=== PATIENT | male | born 2000 | race African-American/Black ===

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

== ENCOUNTER 2020-03-22 11:41 | Emergency (ER) | payer OTHER, MEDICAID, SELFPAY ==
[2020-03-22 11:43] VITALS: BP 140/92; PULSE 90; RESP 18; TEMP 36.3; O2SAT 100
--- NOTE | 2020-03-22 11:47 | PC.NURSE ---
Patient to bathroom to provide urine.
[2020-03-22 12:12] LABS: Add Urine Microscopic? YES; Appearance Urine Clear (Clear); Bacteria Urine Trace /hpf; Bilirubin Urine Negative (Negative); Blood Urine Negative (Negative); Color Urine Yellow (Yellow); Glucose Urine UA Negative (Negative); Ketones Urine Negative (Negative); Leukocyte Esterase Ur 2+ LEU/UL (Negative); Mucus Urine Heavy /lpf; Nitrate Urine Negative (Negative); Protein Urine Negative (Negative); Specific Grav Ur 1.024 (1.001-1.035); Squamous Epithelial Cell Urine Rare /hpf (Few); Urobilinogen Urine Negative mg/dL (<2.0); WBC Urine >75 /hpf
[2020-03-22 12:45] VITALS: BP 131/81; PULSE 89; RESP 20; O2SAT 98
[2020-03-22] MEDS: AZITHROMYCIN 250 MG TABLET 1000 MG PO (12:58)
[2020-03-22] MEDS: metroNIDAZOLE 250 MG TABLET 2000 MG PO (12:59)
[2020-03-22] MEDS: LIDOCAINE HCL 1% LOCAL INJ 20 ML VIAL (13:00)
[2020-03-22] MEDS: cefTRIAXone 250 MG VIAL IM (13:00)
--- NOTE | 2020-03-22 13:00 | ED.ABDPAIN ---
HPI - Abdominal Pain General Chief Complaint: Urogenital-Male Stated Complaint: think I have a UTI Time Seen by Provider: 03/22/20 12:06 Source: patient Mode of arrival: ambulatory Limitations: no limitations History of Present Illness HPI narrative: Patient is a 19-year-old who presents with urinary burning for the last several days denies similar occurrence denies other complaints presents in no distress has not been seen for this is unsure as to STD the risks Related Data Allergies Allergy/AdvReac Type Severity Reaction Status Date / Time No Known Allergies Allergy Verified 03/22/20 11:49 Review of Systems Review of Systems: All systems reviewed & are unremarkable except as noted in HPI and below PMFSH Past Medical History Medical History Healthy adult Surgical History Surgical History No history of previous surgery Social History Social History Smoking status: Never smoker Alcohol intake: never Substance use type: marijuana Gender identity (if verbalized by the patient): Male Exam Narrative: Exam Narrative: GENERAL: Well-appearing, well-nourished, and in no acute distress. HEAD: Normocephalic, atraumatic. EYES: PERRLA and EOMI. ENT: Nares clear, no rhinorrhea or epistaxis. Mucous membranes moist. CHEST: Clear to auscultation. No respiratory distress. No wheezes rales or rhonchi HEART: Regular rate and rhythm. No murmur heard. Normal peripheral pulses. ABDOMEN: Soft, nontender, nondistended EXTREMITIES: Normal range of motion. No edema. SKIN: Warm, dry, no rash. NEURO: No focal deficits. Alert and oriented x3. PSYCH: Normal mood and affect. Course Course Emergency Course: Patient will be tested for STDs found to have urinary tract infection will be treated outpatient with primary care follow-up and is also been given treatment in the emergency department Vital Signs Vital signs: Vital Signs Temperature 97.4 F L 03/22/20 11:43 Pulse Rate 90 03/22/20 11:43 Respiratory Rate 18 03/22/20 11:43 Blood Pressure 140/92 H 03/22/20 11:43 Pulse Oximetry 100 03/22/20 11:43 Temperature 97.4 F L 03/22/20 11:43 Pulse Rate 89 03/22/20 12:45 Respiratory Rate 20 03/22/20 12:45 Blood Pressure 131/81 03/22/20 12:45 Pulse Oximetry 98 03/22/20 12:45 MDM - Abdominal Pain MDM Narrative Medical decision making narrative: Patient with urethritis will be discharged provided with reasons to return given primary care follow-up afebrile nontoxic-appearing no distress was tested and treated in the emergency department Lab Data Labs: Lab Results 03/22/20 Range/Units 11:53 Urine Color Yellow (Yellow) Urine Appearance Clear (Clear) Urine pH 6.0 (5.0-9.0) Ur Specific [place] 1.024 (1.001-1.035) Urine Protein Negative (Negative) mg/dL Urine Glucose (UA) Negative (Negative) mg/dL Urine Ketones Negative (Negative) mg/dL Ur Blood (Man) Negative (Negative) Urine Nitrate Negative (Negative) Urine Bilirubin Negative (Negative) Urine Urobilinogen Negative (<2.0) mg/dL Leukocyte Esterase Rfl 2+ H (Negative) STUART/UL Urine RBC 3-5 H (0-2) /hpf Urine WBC >75 H /hpf Ur Squamous Epith Cells Rare (Few) /hpf Urine Bacteria Trace /hpf Urine Mucus Heavy H /lpf Urine Characteristics Clear Discharge Plan Discharge Clinical Impression: Urethritis Patient Disposition: Home, Self-Care Condition: Stable Instructions: Antibiotic Form, Safe Sex Practices (ED), Urinary Tract Infection in Men (ED) Additional Instructions: Follow up with primary care in the next 2-3 days for re-evaluation and culture results. Antibiotics as prescribed. Increase fluid intake. Tylenol and Motrin for pain and or fever if
[2020-03-22 13:11] VITALS: BP 138/82; PULSE 80; RESP 20; O2SAT 100
== END 2020-03-22 13:12 | disposition home or self-care (01) ==
PROVIDERS: Emergency Medicine Emergency Medical Services; Emergency Provider Emergency Medicine
DX: N34.2 Other urethritis (principal)
CPT/HCPCS: 81001; 87086; 87491; 87591; 96372; 99283; A9270; J0696

== ENCOUNTER 2020-07-20 15:09 | Emergency (ER) | payer OTHER, MEDICAID, SELFPAY ==
[2020-07-20 15:12] VITALS: BP 133/87; PULSE 88; RESP 18; TEMP 36.5; O2SAT 100
--- NOTE | 2020-07-20 15:45 | ED.SKABFB ---
HPI - Skin/Abscess/Foreign Bdy General Chief complaint: Skin/Abscess/Foreign Body Stated complaint: red bumps all over my body Time Seen by Provider: 07/20/20 15:22 Source: patient Mode of arrival: ambulatory Limitations: no limitations History of Present Illness HPI narrative: This is a 19-year-old male that presents the emergency department for itchy rash x3 days. Reports he first noted the rash on his arms. It has spread to his back and legs. He has been taking Benadryl for itching. He also applied a [id number] steroid cream. Does report that he had been using a new soap. Denies fever. Related Data Allergies Allergy/AdvReac Type Severity Reaction Status Date / Time No Known Allergies Allergy Verified 07/20/20 15:16 Review of Systems Review of Systems: Narrative: CONSTITUTIONAL: Denies fever SKIN: Reports rash and itching. All systems reviewed & are unremarkable except as noted in HPI and below PMFSH Past Medical History Medical History Healthy adult Surgical History Surgical History No history of previous surgery Social History Social History Smoking status: Never smoker Alcohol intake: never Substance use type: marijuana Gender identity (if verbalized by the patient): Male Exam Narrative: Exam Narrative: GENERAL: Well-appearing, well-nourished, and in no acute distress. HEAD: Normocephalic, atraumatic. EYES: EOMI. EXTREMITIES: Normal range of motion. No edema. SKIN: Warm, dry. Red, papular rash present on the face, arms, back and leg NEURO: No focal deficits. Alert and oriented x3. PSYCH: Normal mood and affect Course Vital Signs Vital signs: Vital Signs Temperature 97.7 F 07/20/20 15:12 Pulse Rate 88 07/20/20 15:12 Respiratory Rate 18 07/20/20 15:12 Blood Pressure 133/87 07/20/20 15:12 Pulse Oximetry 100 07/20/20 15:12 Temperature 97.7 F 07/20/20 15:12 Pulse Rate 88 07/20/20 15:12 Respiratory Rate 18 07/20/20 15:12 Blood Pressure 133/87 07/20/20 15:12 Pulse Oximetry 100 07/20/20 15:12 MDM - Skin/Abscess/Foreign Bdy MDM Narrative Medical decision making narrative: Patient presents the emergency department for itchy rash. Consistent with possible contact dermatitis. Will be started on a steroid taper and was instructed on antihistamines. He is to follow-up with primary care doctor. He was given warnings to return to the ER Critical Care Time Critical Care Time Critical Care Time: No Discharge Plan Discharge Clinical Impression: Rash and nonspecific skin eruption Patient Disposition: Home, Self-Care Condition: Stable Instructions: Acute Rash (ED) Additional Instructions: Return to the emergency department if you experience fever, redness and swelling of your wounds, abnormal drainage from your wounds, or any other symptoms that are concerning to you Take a Pepcid and Claritin daily. Take steroid taper as prescribed. Benadryl as needed for severe itching Follow-up with primary care doctor Prescriptions: New methylprednisolone [Medrol (Mario)] 4 mg tablets,dose pack See Rx Instructions .ROUTE .COMPLEX Qty: 21 RF: 0 Follow-up/Referrals: Jhonny Link MD [Primary Care Provider] - 3 Days
== END 2020-07-20 16:04 | disposition home or self-care (01) ==
PROVIDERS: Emergency Provider Emergency Medicine; PCP Emergency Medicine
DX: R21 Rash and other nonspecific skin eruption (principal)
CPT/HCPCS: 99283

== ENCOUNTER 2021-02-10 18:41 | Emergency (ER) | payer OTHER, MEDICAID, SELFPAY ==
[2021-02-10 19:13] VITALS: BP 129/69; PULSE 89; RESP 20; TEMP 36.2; O2SAT 99
[2021-02-10 20:52] VITALS: BP 144/83; PULSE 71; RESP 18; O2SAT 100
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
--- NOTE | 2021-02-10 20:59 | PC.NURSE ---
placed in cervical collar until scans of neck are clear.
[2021-02-10 21:50] VITALS: BP 134/81; PULSE 65; RESP 16; TEMP 37.1; O2SAT 100
== END 2021-02-10 21:51 | disposition home or self-care (01) ==
PROVIDERS: Emergency Provider Emergency Medicine
DX: S06.0X0A Concussion without loss of consciousness, initial encounter (principal); V43.52XA Car driver injured in collision with other type car in traffic accident, initial encounter; Y92.410 Unspecified street and highway as the place of occurrence of the external cause
CPT/HCPCS: 99283; L0140

== ENCOUNTER 2021-07-18 08:14 | Emergency (ER) | payer OTHER, SELFPAY ==
[2021-07-18 08:17] VITALS: BP 149/86; PULSE 90; RESP 16; TEMP 36.6; O2SAT 100
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
[2021-07-18 08:53] LABS: Add Urine Microscopic? NO; Appearance Urine Clear (Clear); Bilirubin Urine Negative (Negative); Blood Urine Negative (Negative); Color Urine Yellow (Yellow); Glucose Urine UA Negative (Negative); Ketones Urine Negative (Negative); Leukocyte Esterase Ur Negative LEU/UL (Negative); Nitrate Urine Negative (Negative); Protein Urine Negative (Negative); Specific Grav Ur 1.017 (1.001-1.035); Urobilinogen Urine Negative mg/dL (<2.0)
--- NOTE | 2021-07-18 09:15 | ED.MALEGU ---
HPI - Male Genitourinary General Chief complaint: Urogenital-Male Stated complaint: UTI Time Seen by Provider: 07/18/21 09:02 Source: patient History of Present Illness HPI Narrative: 20 year old male presents today with complaints of 1 week of intermettent burning to the tip of his penis that is not related to urinating. Patient deneis penile discharge. Admits to unprotected se about 1 week ago and new detergent. No rashes, sore, bodyaches, chills, or fevers. Related Data Sexually active: Yes Allergies Allergy/AdvReac Type Severity Reaction Status Date / Time No Known Allergies Allergy Verified 02/10/21 20:46 Review of Systems Constitutional: Constitutional: Reports as per HPI and Reports no additional constitutional complaints Eyes: Eyes: Reports as per HPI ENT: Reports system reviewed and no additional complaints, except as documented Cardiovascular: Cardiovascular: Reports no additional cardiovascular complaints Respiratory: Respiratory: Reports no additional respiratory complaints Genitourinary: Genitourinary: Reports as per HPI and Reports genital pain (intermittent pain to penis) Integumentary/Breasts: Skin/Breast: Reports system reviewed and no additional complaints, except as docu, Denies rash and Denies skin ulcer PMFSH Past Medical History Medical History Healthy adult Surgical History Surgical History No history of previous surgery Social History Social History Smoking status: Never smoker Alcohol intake: never Substance use type: marijuana Gender identity (if verbalized by the patient): Male Exam Narrative: GENERAL: Well-appearing, well-nourished, and in no acute distress. HEAD: Normocephalic, atraumatic. EYES: PERRLA and EOMI. NECK: Supple. No adenopathy or masses. No carotid bruits or JVD CHEST: Clear to auscultation. No respiratory distress. No wheezes rales or rhonchi HEART: Regular rate and rhythm. No murmur heard. Normal peripheral pulses. ABDOMEN: Soft, nontender, nondistended, normal active bowel sounds. : No discharge, no lesions, no rash EXTREMITIES: Normal range of motion. No edema. SKIN: Warm, dry, no rash. NEURO: No focal deficits. Alert and oriented x3. PSYCH: Normal mood and affect. Course Vital Signs Vital signs: Vital Signs Temperature 36.6 C 07/18/21 08:17 Pulse Rate 90 07/18/21 08:17 Respiratory Rate 16 07/18/21 08:17 Blood Pressure 149/86 H 07/18/21 08:17 Pulse Oximetry 100 07/18/21 08:17 Temperature 36.6 C 07/18/21 08:17 Pulse Rate 70 07/18/21 09:41 Respiratory Rate 14 07/18/21 09:41 Blood Pressure 118/68 07/18/21 09:41 Pulse Oximetry 100 07/18/21 09:41 MDM - Male Genitourinary Differential Diagnosis Differential diagnosis: Likely urinary tract infection and other (STI) Lab Data Lab results narrative: Laboratory Results - last 24 hr 07/18/21 08:42 Urine Color Yellow Urine Appearance Clear Urine pH 6.0 Ur Specific [place] 1.017 Urine Protein Negative Urine Glucose (UA) Negative Urine Ketones Negative Ur Blood (Man) Negative Urine Nitrate Negative Urine Bilirubin Negative Urine Urobilinogen Negative Leukocyte Esterase Rfl Negative Labs: Lab Results 07/18/21 07/18/21 Range/Units 08:42 08:42 Urine Color Yellow (Yellow) Urine Appearance Clear (Clear) Urine pH 6.0 (5.0-9.0) Ur Specific [place] 1.017 (1.001-1.035) Urine Protein Negative (Negative) mg/dL Urine Glucose (UA) Negative (Negative) mg/dL Urine Ketones Negative (Negative) mg/dL Ur Blood (Man) Negative (Negative) Urine Nitrate Negative (Negative) Urine Bilirubin Negative (Negative) Urine Urobilinogen Negative (<2.0) mg/dL Leukocyte Esterase Rfl Negative (Negative) STUART/UL C.trachomatis RNA (T
[2021-07-18] MEDS: DOXYCYCLINE HYCLATE 100 MG TABLET PO (09:34)
[2021-07-18] MEDS: cefTRIAXone 1 GM VIAL 0.5 GM IM (09:35)
[2021-07-18 09:41] VITALS: BP 118/68; PULSE 70; RESP 14; O2SAT 100
== END 2021-07-18 09:42 | disposition home or self-care (01) ==
PROVIDERS: Emergency Medicine; Emergency Provider Nurse Practitioner Family
DX: N48.89 Other specified disorders of penis (principal); Z72.51 High risk heterosexual behavior; Z11.3 Encounter for screening for infections with a predominantly sexual mode of transmission
CPT/HCPCS: 81003; 87491; 87591; 96372; 99283; A9270; J0696

== ENCOUNTER 2021-08-24 10:00 | Emergency (ER) | payer OTHER, SELFPAY ==
[2021-08-24 10:04] VITALS: BP 140/78; PULSE 98; RESP 14; TEMP 36.9; O2SAT 100
--- NOTE | 2021-08-24 11:34 | ED.GENADULT ---
HPI - General Adult General Chief complaint: Urogenital-Male <Shabnam Buckley PA-C - Last Filed: 08/24/21 16:39> Stated complaint: UTI <GIANNI Bhat Last Filed: 08/24/21 16:39> Time Seen by Provider: 08/24/21 10:53 <Shabnam Buckley PA-C - Last Filed: 08/24/21 16:39> Source: patient <GIANNI Bhat Last Filed: 08/24/21 16:39> Mode of arrival: ambulatory <GIANNI Bhat Last Filed: 08/24/21 16:39> Limitations: no limitations <GIANNI Bhat Last Filed: 08/24/21 16:39> History of Present Illness HPI narrative: Patient is a 20-year-old male who presents the ED with report of dysuria. Patient reports he has been having the sensation for approximately 1 month. He was seen in the ED on 07/18 at which point there was concern for STIs. Patient was empirically treated, but did not take the doxycycline as prescribed. He eventually did take the full course but missed several days in between. He states the symptoms improved slightly but have worsened again over the past 1 week. He states the dysuria is only at the end of micturition, not throughout or at the beginning. Denies any hematuria, urinary frequency, back pain, abdominal pain, nausea, vomiting, penile discharge, sores or lesions, or further concern for STI. <Shabnam Buckley PA-C - Last Filed: 08/24/21 16:39> Related Data Home medications: Home Medications Medication Instructions Recorded Confirmed No Home Medications 08/24/21 08/24/21 <GIANNI Bhat Last Filed: 08/24/21 16:39> Allergies/adverse reactions: Allergies Allergy/AdvReac Type Severity Reaction Status Date / Time No Known Allergies Allergy Verified 08/24/21 11:54 <GIANNI Bhat Last Filed: 08/24/21 16:39> Review of Systems Review of Systems: CONSTITUTIONAL: Denies fever, chills, or sweats. CARDIOVASCULAR: Denies chest pain. RESPIRATORY: Denies dyspnea. GASTROINTESTINAL: Denies abdominal pain, nausea, vomiting, or diarrhea. GENITOURINARY: Reports dysuria. Denies penile discharge, genital lesions/sores, urinary frequency, hematuria. MUSCULOSKELETAL: Denies back pain. <Shabnam Buckley PA-C - Last Filed: 08/24/21 16:39> All systems reviewed & are unremarkable except as noted in HPI and below <Shabnam Buckley PA-C - Last Filed: 08/24/21 16:39> PMFSH Past Medical History Medical History: Medical History Healthy adult <Shabnam Buckley PA-C - Last Filed: 08/24/21 16:39> Surgical History Surgical History: Surgical History No history of previous surgery <Shabnam Buckley PA-C - Last Filed: 08/24/21 16:39> Social History Social History: Social History Smoking status: Never smoker Alcohol intake: never Substance use type: marijuana Gender identity (if verbalized by the patient): Male <Shabnam Buckley PA-C - Last Filed: 08/24/21 16:39> Exam Narrative: GENERAL: Well appearing, well-nourished, non-toxic, in no acute distress. HEAD: Normocephalic, atraumatic. NECK: Supple. No adenopathy, no masses. RESPIRATORY: Airway patent, respirations nonlabored. Clear to auscultation bilaterally, no rales, rhonchi, wheezing. CARDIOVASCULAR: Regular rate and rhythm without murmurs, rubs, or gallops. ABDOMINAL: Soft, nontender, nondistended, no hepatosplenomegaly. Normoactive BS. MUSCULOSKELETAL: Moves all extremities. Strength/ROM intact without gross deformities. SKIN: Warm, dry, normal color. No rashes. NEURO: A&O X3. Speech clear. Cranial nerves II-XII grossly intact. Steady gait. No ataxic movements. PSYCHIATRIC: Appropriate mood and affect. Normal interaction. <Shabnam Buckley PA-C - Last Filed: 08/24/21 16:39> Course CLERK OF SUPERIOR COURT/PA Physician Supervision For this patient encounter, I reviewed the CLERK OF SUPERIOR COURT or PA documentation,
[2021-08-24 11:36] LABS: Add Urine Microscopic? YES; Appearance Urine Clear (Clear); Bilirubin Urine Negative (Negative); Blood Urine Negative (Negative); Color Urine Yellow (Yellow); Glucose Urine UA Negative (Negative); Ketones Urine Negative (Negative); Leukocyte Esterase Ur Negative LEU/UL (Negative); Nitrate Urine Negative (Negative); Protein Urine Negative (Negative); RBC Urine 0-2 /hpf (0-2); Specific Grav Ur 1.018 (1.001-1.035); WBC Urine 0-3 /hpf
[2021-08-24 11:59] LABS: Basophils Percent Auto 0.3 % (0.2-1.2); Eosinophils Absolute Auto 0.1 K/mm3 (0-0.3); Eosinophils Percent Auto 1.8 % (0-4.4); Hemoglobin 17.4 g/dL (14.0-18.0); Lymphocytes Absolute Auto 1.53 K/mm3 (0.9-3.2); Lymphocytes Percent Auto 46.4 % (18.3-44.2); Mean Corpuscular HGB Conc 34.1 g/dl (32-36); Mean Corpuscular Hemoglobin 31.9 pg (26-34); Mean Corpuscular Volume 93.4 fl (80-100); Mean Platelet Volume 10.4 fl (7.4-10.4); Monocytes Absolute Auto 0.3 K/mm3 (0.1-0.6); Monocytes Percent Auto 7.9 % (2.6-8.5); Neutrophils Absolute Auto 1.4 K/mm3 (1.3-6.7); Neutrophils Percent Auto 43.6 % (45.5-73.1); Platelet Count Result 194 k/mm3 (150-375); Red Blood Count 5.46 M/mm3 (4.6-6.20); Red Cell Distribution Width 12.1 % (11.5-14.5); White Blood Count 3.3 K/mm3 (4.5-10.0)
[2021-08-24 12:09] LABS: Alanine Aminotransferase 57 U/L (4-50); Alkaline Phosphatase 81 U/L (38-126); Anion Gap 5 mmol/L (8-16); Aspartate Amino Transferase 35 U/L (17-59); Bilirubin,Total 1.2 mg/dL (0.2-1.3); Blood Urea Nitrogen 14 mg/dL (9-20); Calcium 9.6 mg/dL (8.4-10.2); Carbon Dioxide 32 mmol/L (22-30); Chloride 99 mmol/L (98-107); Estimated CRCL calculation 100 ml/min; Estimated Glomerular Filt Rate > 60; Glucose 92 mg/dL (65-110); Sodium 136 mmol/L (137-145)
--- NOTE | 2021-08-24 12:35 | PC.NURSE ---
Lab called for GC add on to urine.
== END 2021-08-24 12:56 | disposition home or self-care (01) ==
PROVIDERS: Physician Assistant; Emergency Provider Emergency Medicine
DX: R30.0 Dysuria (principal)
CPT/HCPCS: 36415; 80053; 81001; 85025; 99283

== ENCOUNTER 2022-11-29 17:32 | Emergency (ER) | payer BC, OTHER, SELFPAY ==
[2022-11-29 17:38] VITALS: BP 136/93; PULSE 94; RESP 17; TEMP 36.6; O2SAT 99
[2022-11-29 20:20] LABS: Basophils Percent Auto 0.4 % (0.2-1.2); Eosinophils Absolute Auto 0.1 K/mm3 (0-0.3); Eosinophils Percent Auto 1.6 % (0-4.4); Hematocrit 48.2 % (42.0-52.0); Hemoglobin 16.9 g/dL (14.0-18.0); Immature Granulocyte Absolute 0.01 K/mm3 (0.00-0.031); Immature Granulocyte Percent A 0.2 % (0-0.5); Lymphocytes Absolute Auto 1.92 K/mm3 (0.9-3.2); Lymphocytes Percent Auto 39.5 % (18.3-44.2); Mean Corpuscular HGB Conc 35.1 g/dl (32-36); Mean Corpuscular Hemoglobin 31.5 pg (26-34); Mean Corpuscular Volume 89.9 fl (80-100); Mean Platelet Volume 10.4 fl (7.4-10.4); Monocytes Absolute Auto 0.5 K/mm3 (0.1-0.6); Monocytes Percent Auto 9.5 % (2.6-8.5); Neutrophils Absolute Auto 2.4 K/mm3 (1.3-6.7); Neutrophils Percent Auto 48.8 % (45.5-73.1); Platelet Count Result 191 k/mm3 (150-375); Red Blood Count 5.36 M/mm3 (4.6-6.20); Red Cell Distribution Width 11.9 % (11.5-14.5); White Blood Count 4.9 K/mm3 (4.5-10.0)
[2022-11-29 20:36] LABS: Alanine Aminotransferase 38 U/L (6-50); Albumin Level 4.9 g/dL (3.5-5.1); Alkaline Phosphatase 72 U/L (38-126); Anion Gap 5 mmol/L (8-16); Aspartate Amino Transferase 29 U/L (17-59); Bilirubin,Total 1.3 mg/dL (0.2-1.3); Blood Urea Nitrogen 16 mg/dL (9-20); Calcium 10.3 mg/dL (8.4-10.2); Carbon Dioxide 33 mmol/L (22-30); Chloride 101 mmol/L (98-107); Estimated Glomerular Filt Rate > 60; Glucose 82 mg/dL (65-110); Lipase 44 U/L (23-300); Potassium 3.5 mmol/L (3.4-5.0); Sodium 139 mmol/L (137-145)
[2022-11-29 21:03] VITALS: BP 143/97; PULSE 71; RESP 16; O2SAT 100
[2022-11-29 21:30] LABS: Appearance Urine Clear (Clear); Bacteria Urine None Seen /hpf; Bilirubin Urine Negative (Negative); Blood Urine Negative (Negative); Color Urine Yellow (Yellow); Glucose Urine UA Negative (Negative); Ketones Urine Trace mg/dL (Negative); Leukocyte Esterase Ur Negative LEU/UL (Negative); Need Manual Microscopic Reviewed; Nitrate Urine Negative (Negative); Protein Urine Trace mg/dL (Negative); RBC Urine 0-2 /hpf (0-2); Specific Grav Ur 1.031 (1.001-1.035); Squamous Epithelial Cell Urine None seen /hpf (Few); WBC Urine 0-5 /hpf; pH Urine 6.5 (5.0-9.0)
[2022-11-29 21:32] LABS: Add Urine Microscopic? YES
[2022-11-29] MEDS: ACETAMINOPHEN 500 MG TABLET 1000 MG PO (21:44)
[2022-11-29] MEDS: DICYCLOMINE HCL 10 MG CAPSULE 20 MG PO (21:44)
[2022-11-29] MEDS: IBUPROFEN 400 MG TABLET 800 MG PO (21:45)
--- NOTE | 2022-11-29 21:46 | ED.GENADULT ---
HPI - General Adult General Chief complaint: Abdominal Pain Stated complaint: abd pain Time Seen by Provider: 11/29/22 21:00 History of Present Illness HPI narrative: A 22-year-old male presenting ED with a chief complaint of abdominal pain. Patient says that for the last 3 days he has been having sharp pains in his lower abdomen that are intermittent, 4 out 10 intensity and improved with burping. Symptoms are worse with movement. He has been treated himself with Gas-X and tums which has provided some relief. However he continued to have symptoms he came in to be evaluated. The patient denies fever chills nausea vomiting diarrhea urinary symptoms or risk factors for STDs. Related Data Allergies Allergy/AdvReac Type Severity Reaction Status Date / Time No Known Allergies Allergy Verified 11/29/22 21:04 [facility] Past Medical History Medical History Healthy adult Surgical History Surgical History No history of previous surgery Social History Social History Smoking status: Never smoker Alcohol intake: never Substance use type: marijuana Gender identity (if verbalized by the patient): Male Exam Narrative: APPEARANCE: No apparent distress. Polite and pleasant during the interview. Head: atraumatic. EYES: EOMI, NOSE: Atraumatic NECK: Trachea midline RESPIRATORY: No increased rate of breathing , clear to auscultation CARDIOVASCULAR: RRR, ABDOMINAL: soft, nontender, no guarding or rebound, no CVA tenderness MUSCULOSKELETAl: No obvious deformities NEURO: Alert. Moving 4/4 extremities SKIN:: Warm, dry. Normal color PSYCHIATRIC: Normal affect Course Vital Signs Vital signs: Vital Signs Temperature 97.8 F 11/29/22 17:38 Pulse Rate 94 11/29/22 17:38 Respiratory Rate 17 11/29/22 17:38 Blood Pressure 136/93 H 11/29/22 17:38 Pulse Oximetry 99 11/29/22 17:38 Oxygen Delivery Room Air 11/29/22 17:38 Temperature 97.8 F 11/29/22 17:38 Pulse Rate 71 11/29/22 21:03 Respiratory Rate 16 11/29/22 21:03 Blood Pressure 143/97 H 11/29/22 21:03 Pulse Oximetry 100 11/29/22 21:03 Oxygen Delivery Room Air 11/29/22 17:[address] [facility] Narrative Medical decision making narrative: -Presentation: 22-year-old male presenting with diffuse sharp abdominal pain. 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 Urinalysis normal. -Discussion of Management/Consultants: None -Dx tests considered but not ordered: CT abdomen pelvis-benign abdominal exam and normal vital signs. -Procedures: none -Interventions: Motrin, Tylenol, Bentyl -Shared decision making / Disposition: patient has normal vital signs with a normal physical exam. No concerning findings on workup. No indication for CT at this time. Patient will be given symptomatic treatment and given primary care follow-up -RX: Motrin, Tylenol, Bentyl Vital Signs Vital Signs: Vital Signs Temperature 97.8 F 11/29/22 17:38 Pulse Rate 94 11/29/22 17:38 Respiratory Rate 17 11/29/22 17:38 Blood Pressure 136/93 H 11/29/22 17:38 Pulse Oximetry 99 11/29/22 17:38 Oxygen Delivery Room Air 11/29/22 17:38 Temperature 97.8 F 11/29/22 17:38 Pulse Rate 71 11/29/22 21:03 Respiratory Rate 16 11/29/22 21:03 Blood Pressure 143/97 H 11/29/22 21:03 Pulse Oximetry 100 11/29/22 21:03 Oxygen Delivery Room Air 11/29/22 17:38 Lab Data 11/29/22 20
[2022-11-29 22:13] VITALS: BP 124/74; PULSE 68; RESP 18; O2SAT 100
== END 2022-11-29 22:21 | disposition home or self-care (01) ==
PROVIDERS: Emergency Provider Emergency Medicine
DX: R10.30 Lower abdominal pain, unspecified (principal)
CPT/HCPCS: 36415; 80053; 81001; 83690; 85025; 99283; A9270

== ENCOUNTER 2023-06-07 15:21 | Emergency (ER) | payer BC, OTHER, SELFPAY ==
[2023-06-07 15:36] VITALS: BP 134/69; PULSE 87; RESP 16; TEMP 36.9; O2SAT 99
[2023-06-07 16:12] VITALS: BP 139/86; PULSE 108; RESP 15; O2SAT 98
[2023-06-07 16:37] LABS: Appearance Urine Clear (Clear); Bilirubin Urine Negative (Negative); Blood Urine Negative (Negative); Color Urine Yellow (Yellow); Glucose Urine UA Negative (Negative); Ketones Urine Trace mg/dL (Negative); Leukocyte Esterase Ur Negative LEU/UL (Negative); Nitrate Urine Negative (Negative); Protein Urine Negative (Negative); pH Urine 6.5 (5.0-9.0)
[2023-06-07 16:46] LABS: Add Urine Microscopic? NO
--- NOTE | 2023-06-07 17:37 | ED.MALEGU ---
HPI - Male Genitourinary General Chief complaint: Urogenital-Male Stated complaint: burning with urination Time Seen by Provider: 06/07/23 16:50 Source: patient Mode of arrival: ambulatory Limitations: no limitations History of Present Illness HPI Narrative: Patient is a 22-year-old male who presents the ED with concern for exposure to STD. Patient reports he was notified by a recent sexual partner that she tested positive for chlamydia. Patient would like to be tested and treated prophylactically. He does note a strange sensation times with urination, but denies dysuria, hematuria, penile discharge, genital lesions or sores. Denies abdominal pain, nausea, vomiting, fevers. Related Data Allergies Allergy/AdvReac Type Severity Reaction Status Date / Time No Known Allergies Allergy Verified 06/07/23 16:11 Review of Systems Review of Systems: CONSTITUTIONAL: Denies fever, chills, or sweats. GASTROINTESTINAL: Denies abdominal pain, nausea, vomiting, or diarrhea. GENITOURINARY: See HPI All systems reviewed & are unremarkable except as noted in HPI and below PMFSH Past Medical History Medical History Healthy adult Surgical History Surgical History No history of previous surgery Social History Social History Smoking status: Never smoker Alcohol intake: never Substance use type: marijuana Gender identity (if verbalized by the patient): Male Exam Narrative: GENERAL: Well appearing, well-nourished, non-toxic, in no acute distress. HEAD: Normocephalic, atraumatic. RESPIRATORY: Airway patent, respirations nonlabored. CARDIOVASCULAR: Regular rate and rhythm. MUSCULOSKELETAL: Moves all extremities. No gross deformities. SKIN: Warm, dry, normal color. NEURO: A&O X3. Speech clear. PSYCHIATRIC: Appropriate mood and affect. Normal interaction. Course Vital Signs Vital signs: Vital Signs Temperature 98.4 F 06/07/23 15:36 Pulse Rate 87 06/07/23 15:36 Respiratory Rate 16 06/07/23 15:36 Blood Pressure 134/69 06/07/23 15:36 Pulse Oximetry 99 06/07/23 15:36 Oxygen Delivery Room Air 06/07/23 15:36 Temperature 98.4 F 06/07/23 15:36 Pulse Rate 108 H 06/07/23 16:12 Respiratory Rate 15 06/07/23 16:12 Blood Pressure 139/86 06/07/23 16:12 Pulse Oximetry 98 06/07/23 16:12 Oxygen Delivery Room Air 06/07/23 15:36 MDM - Male Genitourinary MDM Narrative Medical decision making narrative: Patient presented to ED with exposure to STD, wanting to be tested and treated prophylactically. Given ceftriaxone in the ED. Discharged on doxy. Given information for [facility] to look up results. Given return precautions. Discharged in stable condition. Medical Records Attestation: I reviewed the patient's medical records. Lab Data Attestation: I reviewed the patient's lab results. Labs: Lab Results 06/07/23 06/07/23 Range/Units 16:09 16:19 Urine Color Yellow (Yellow) Urine Appearance Clear (Clear) Urine pH 6.5 (5.0-9.0) Ur Specific Justice 1.030 (1.001-1.035) Urine Protein Negative (Negative) mg/dL Urine Glucose (UA) Negative (Negative) mg/dL Urine Ketones Trace H (Negative) mg/dL Ur Blood (Man) Negative (Negative) Urine Nitrate Negative (Negative) Urine Bilirubin Negative (Negative) Urine Urobilinogen 1.0 (<2.0) mg/dL Leukocyte Esterase Rfl Negative (Negative) STUART/UL C. trachomatis (PCR) Pending N. gonorrhoeae (PCR) Pending T. vaginalis (PCR) Not detected (NOT DETECTE) T. vaginalis Amp RNA Cancelled Discharge Plan Discharge Clinical Impression: Exposure to sexually transmitted disease (STD) Patient Disposition: Home, Self-Care Condition: Stable Instructions: Antibiotic Form, Chlamydia
[2023-06-07] MEDS: DOXYCYCLINE HYCLATE 100 MG TABLET PO (17:50)
[2023-06-07] MEDS: cefTRIAXone 1 GM VIAL 0.5 GM IM (17:50)
[2023-06-07 18:38] LABS: Trichomonas Vag PCR NOT DETECTED (NOT DETECTE)
[2023-06-07 19:59] LABS: Chlamydia trachomatis DETECTED (NOT DETECTE); Neisseria gonorrhoeae PCR NOT DETECTED (NOT DETECTE)
== END 2023-06-07 18:47 | disposition home or self-care (01) ==
PROVIDERS: Emergency Medicine; Emergency Provider Physician Assistant
DX: R30.0 Dysuria (principal); Z20.2 Contact with and (suspected) exposure to infections with a predominantly sexual mode of transmission
CPT/HCPCS: 81003; 87491; 87591; 87661; 96372; 99283; A9270; J0696

== ENCOUNTER 2023-06-29 09:22 | Emergency (ER) | payer BC, OTHER, MEDICAID, SELFPAY ==
[2023-06-29 10:00] VITALS: BP 142/77; PULSE 71; RESP 16; TEMP 37.1; O2SAT 99
--- NOTE | 2023-06-29 10:16 | ED.GENADULT ---
HPI - General Adult General Chief complaint: Urogenital-Male Stated complaint: std exposure Source: patient, RN notes reviewed and old records reviewed Mode of arrival: ambulatory Limitations: no limitations History of Present Illness HPI narrative: 22-year-old male patient presents to [facility] requesting STD testing. Patient states had exposure to chlamydia 2-3 weeks ago. Patient states was seen and treated for chlamydia. Patient states just wanting to make sure it is is resolved. Patient denies symptoms Related Data Home Medications Medication Instructions Recorded Confirmed No Home Medications 06/29/23 06/29/23 Allergies Allergy/AdvReac Type Severity Reaction Status Date / Time No Known Allergies Allergy Verified 06/29/23 09:56 Review of Systems Constitutional: Constitutional: Reports no additional constitutional complaints, Denies body ache(s), Denies chills, Denies fatigue, Denies fever(s) and Denies headache(s) Eyes: Eyes: Reports no additional eye complaints and Denies blurry vision ENT: Reports system reviewed and no additional complaints, except as documented, Denies vertigo, Denies dizziness, Denies ear discharge, Denies otalgia, Denies facial pain, Denies headache(s), Denies nasal congestion, Denies nasal discharge, Denies sinus pain, Denies sinus pressure and Denies sore throat Cardiovascular: Cardiovascular: Reports no additional cardiovascular complaints, Denies chest pain, Denies chest pain at rest, Denies rapid heart rate and Denies dyspnea Respiratory: Respiratory: Reports no additional respiratory complaints, Denies chest congestion, Denies cough, Denies pain on inspiration, Denies pain with cough and Denies dyspnea Gastrointestinal: Gastrointestinal: Denies abdominal pain, Denies diarrhea, Denies nausea and Denies vomiting Genitourinary: Genitourinary: Reports no additional male genitourinary complaints, Denies erectile dysfunction, Denies genital lesions, Denies genital pain, Denies dysuria, Denies flank pain, Denies nocturia, Denies painful ejaculations and Denies penile discharge Integumentary/Breasts: Skin/Breast: Denies rash Neurologic: Reports system reviewed and no additional complaints, except as documented, Denies vertigo, Denies dizziness and Denies headache(s) Endocrine: Endocrine: Denies fatigue PMFSH Past Medical History Medical History Healthy adult Surgical History Surgical History No history of previous surgery Social History Social History Smoking status: Never smoker Alcohol intake: never Substance use type: marijuana Gender identity (if verbalized by the patient): Male Comments At the time of my signature, I reviewed and agree with the nursing past medical, surgical, social, and family history. There is no relevant family history pertinent to the patient complaint. Exam Const: General: cooperative, healthy appearing, no acute distress and well nourished Nutritional Appearance: well nourished Orientation/consciousness: patient oriented x3 Limitations: no limitations HENMT: Head: normal to inspection and normocephalic Ears: external ears normal, TM's normal bilaterally, mastoids normal and Abnormal EAC present Face/Nose/Sinus: normal facial exam Face and sinus: normal facial exam Mouth: Yes Normal oral and palatal mucosa present, Yes oropharynx normal and Yes moist mucous membranes Throat: tonsils normal, uvula midline and no uvular edema Eyes: General: appearance normal, both eyes and all related structures Sclera: sclerae normal Pupils: Equal, round and reactive pupils present Resp: Effort & Inspection: normal respiratory effort, able to speak in complete sentences, no audible wheezes, no cough, no respiratory distress and no retractions GI: Inspection: normal to inspection G
[2023-06-29 19:56] LABS: Trichomonas Vag PCR NOT DETECTED (NOT DETECTE)
[2023-06-29 20:20] LABS: Chlamydia trachomatis NOT DETECTED (NOT DETECTE); Neisseria gonorrhoeae PCR NOT DETECTED (NOT DETECTE)
== END 2023-06-29 10:27 | disposition home or self-care (01) ==
PROVIDERS: Emergency Provider Registered Nurse
DX: Z20.2 Contact with and (suspected) exposure to infections with a predominantly sexual mode of transmission (principal); F12.90 Cannabis use, unspecified, uncomplicated
CPT/HCPCS: 87491; 87591; 87661; 99213; G0463

== ENCOUNTER 2024-10-24 12:39 | Emergency (ER) | payer OTHER, MEDICAID, SELFPAY ==
--- NOTE | 2024-10-24 12:40 | ED_ITS ---
HPI - URI/Sore Throat General Chief Complaint: Upper Respiratory Infection Stated Complaint: flu symptoms Time Seen by Provider: 10/24/24 12:40 Source: patient Mode of arrival: ambulatory Limitations: no limitations History of Present Illness HPI Narrative: Raj is a 24-year-old male patient presenting to the clinic today with complaints of flu-like symptoms. He reports he is having nasal congestion, headache, body aches, chills, and diarrhea x3 days. No known fever. Denies any chest pain, shortness of breath, or sore throat. MD elicited complaint: sore throat and nasal congestion Related Data Home Medications ?Medication ?Instructions ?Recorded ?Confirmed ?Last Taken ?Type No Home Medications 06/29/23 10/24/24 Unknown History Allergies Allergy/AdvReac Type Severity Reaction Status Date / Time No Known Allergies Allergy Verified 10/24/24 12:50 Review of Systems Review of Systems: Pertinent positives per HPI. Patient denies any fever, rash, visual changes, dizziness, cough, shortness of breath, chest pain, palpitations, nausea, vomiting,constipation, abdominal pain, or any urinary issues. [facility] Past Medical History Medical History Healthy adult Surgical History Surgical History No history of previous surgery Social History Social History Smoking status: Never smoker Alcohol intake: never Substance use type: marijuana Gender identity (if verbalized by the patient): Male Comments At the time of my signature, I reviewed and agree with the nursing past medical, surgical, social, and family history. There is no relevant family history pertinent to the patient complaint. Exam Narrative: General: Well-developed, well nourished, in no apparent distress Head: Normocephalic, atraumatic Eyes: Pupils equally round and reactive to light bilaterally, EOM intact, sclera and conjunctive clear, no discharge, lids normal Ears: TMs intact and clear, ear canals clear, no drainage, grossly hearing norm al. Nose: Nares patent, clear nasal discharge, no inflammation, no sinus tenderness. Mouth: Oral pharynx red without lesions or masses, good dentition, MMM. Postnasal drip Neck: Supple, trachea midline, no enlargement of anterior or posterior cervical nodes, no thyroid masses or goiter palpable. Cardio: Regular rate and rhythm, s1 and s2 normal, no murmur appreciated. Resp: Clear to auscultation bilaterally, no rhonchi, rales, wheezing or rubs Abdomen: Soft, pliable, bowel sounds present in all quadrants, non-tender to palpation, no organomegly, no CVAT tenderness. Course Course Emergency Course: Portions of this record may have been created with voice recognition software. Level of Care: Express Care Visit Vital Signs Vital signs: Vital Signs Temperature 36.2 C L 10/24/24 12:46 Pulse Rate 96 10/24/24 12:46 Respiratory Rate 18 10/24/24 12:46 Blood Pressure 138/83 10/24/24 12:46 Pulse Oximetry 98 10/24/24 12:46 Oxygen Delivery Room Air 10/24/24 12:46 Temperature 36.2 C L 10/24/24 12:46 Pulse Rate 96 10/24/24 12:46 Respiratory Rate 18 10/24/24 12:46 Blood Pressure 138/83 10/24/24 12:46 Pulse Oximetry 98 10/24/24 12:46 Oxygen Delivery Room Air 10/24/24 12:46 Vital signs reviewed MDM - URI/Sore Throat MDM Narrative Medical decision making narrative: At the time of visit patient is resting comfortably on the exam table. Patient appears to be nontoxic. Labs: COVID, strep, and influenza testing was negative at this time. We will send strep for culture. Plan: I suspect patient has URI/viral syndrome. Supportive measures were discussed with the patient and they voiced understanding discharge instructions and agrees to treatment plan. Return precautions reviewed Differential Diagnosis Differential diagnosis: Likely upper respiratory infection, otitis media, sinusitis, viral infection, bronchitis, influenza, pharyngitis and other (COVID) Lab Data Labs: Lab Results 10/24/24 Range/Units 13:07 POC Influenza A Ag Negative (Negative) POC Influenza B Ag Negative (Negative) POC SARS CoV-2 Ag Negative (Negative) POC Grp A Strep Screen Negative (Negative) Discharge Plan Discharge Clinical Impression: Viral infection Upper respiratory infection Qualifiers: URI type: unspecified URI Qualified Code(s): J06.9 - Acute upper respiratory infection, unspecified Patient Disposition: Home Condition: Stable Instructions: Antibiotic Form, Upper Respiratory Infection (ED), Viral Syndrome (ED) Additional Instructions: COVID, strep, and influenza testing was performed. All testing was negative. We will send strep for culture. May take Imodium as needed for diarrhea as long as there is no blood in your stool. Increase fluids and stay well hydrated Tylenol/motrin for pain/fever Flonase and OTC antihistamines as directed Vicks vapor rub to open sinuses Sinus rinses for congestion Cepacol spray, cough drops, throat lozenges, warm tea with honey/lemon, gargle salt water to soothe throat BRAT diet for diarrhea Clear liquids x 24 hours then advance as tolerated for nausea/vomiting Go to the ED if you develop a worsening in your condition- high fever not controlled by Tylenol or Motrin, dehydration, weakness, lethargy, shortness of breath, or chest pain. Follow up with your PCP in 3-5 days if symptoms persist. Patient Language: Kinyarwanda Prescriptions: No Action No Home Medications Follow-up/Referrals: UNKNOWN,DOCTOR [Non-Staff] - Stand Alone Forms: Work/School Release IP Time of Disposition: 13:16 Quality NIHSS Nursing Documentation ED NIHSS nursing documentation: reviewed/agree
[2024-10-24 12:46] VITALS: BP 138/83; PULSE 96; RESP 18; TEMP 36.2; O2SAT 98
[2024-10-24 13:08] LABS: EDCOVIDSCREEN Negative (Negative); EDINFLUASCREEN Negative (Negative); EDINFLUBSCREEN Negative (Negative)
[2024-10-24 13:16] LABS: EDSTREPNEGPOS1 Negative (Negative)
== END 2024-10-24 13:25 | disposition home or self-care (01) ==
PROVIDERS: Emergency Provider Nurse Practitioner Family
DX: B34.9 Viral infection, unspecified (principal); J06.9 Acute upper respiratory infection, unspecified; Z20.822 Contact with and (suspected) exposure to COVID-19; F12.90 Cannabis use, unspecified, uncomplicated
CPT/HCPCS: 87081; 87426; 87804; 87880; 99213; G0463

== ENCOUNTER 2025-02-20 09:12 | Emergency (ER) | payer OTHER, MEDICAID, SELFPAY ==
[2025-02-20 09:21] VITALS: BP 146/83; PULSE 57; RESP 20; TEMP 36.8; O2SAT 100
[2025-02-20] MEDS: cefTRIAXone 500 MG, LIDOCAINE 1% LOCAL INJ 1 ML IM (10:12)
--- NOTE | 2025-02-20 10:17 | ED.MALEGU ---
HPI - Male Genitourinary General Chief complaint: Urogenital-Male Stated complaint: std testing Time Seen by Provider: 02/20/25 10:00 Source: patient and RN notes reviewed Mode of arrival: ambulatory Limitations: no limitations History of Present Illness HPI Narrative: 24-year-old male presents Express Care complaining of penile discharge since this morning. Patient reports he was exposed to someone is tested positive for STDs approximately 2 weeks ago. Patient said his previous partner told him that she tested positive for gonorrhea and mycoplasma genitalia. Patient said he was tested for STDs 2 weeks ago through [facility] and they were all negative for chlamydia, gonorrhea, Trichomonas, and HIV. Patient denies any painful erections, testicular pain or swelling him a scrotal pain or swelling, prolonged erections, painful intercourse, dysuria, fevers, body aches, chills, nausea, vomiting, abdominal pain, or any other symptoms. Related Data Allergies Allergy/AdvReac Type Severity Reaction Status Date / Time No Known Allergies Allergy Verified 02/20/25 09:14 Review of Systems Review of Systems: CONSTITUTIONAL: Denies fever, chills, or sweats. EYES: Denies visual changes, redness, or discharge. ENT: Denies rhinorrhea, congestion, sore throat, or otalgia. CARDIOVASCULAR: Denies chest pain, palpitations, or edema. RESPIRATORY: Denies cough or dyspnea. GASTROINTESTINAL: Denies abdominal pain, nausea, vomiting, or diarrhea. GENITOURINARY: Denies dysuria, testicular pain, testicular swelling, scrotal pain, scrotal swelling, painful erection, painful intercourse, or hematuria. Positive for penile discharge. SKIN: Denies rash or itching. MUSCULOSKELETAL: Denies back pain, joint pain, or myalgia. NEUROLOGIC: Denies headache, numbness, or weakness. PSYCHIATRIC: Denies anxiety or depression. All other systems reviewed are negative, except as documented in HPI. [facility] Past Medical History Medical History Healthy adult Surgical History Surgical History No history of previous surgery Social History Social History Smoking status: Never smoker Alcohol intake: never Substance use type: marijuana Gender identity (if verbalized by the patient): Male Comments At the time of my signature, I reviewed and agree with the nursing past medical, surgical, social, and family history. There is no relevant family history pertinent to the patient complaint. Exam Narrative: GENERAL: This is a well-nourished, well-developed adult, in no apparent distress. They are non ill-appearing, nontoxic appearing. HEAD: normocephalic, atraumatic. EYES: Sclera clear/white. Conjunctiva normal. Vision is grossly intact. Extraocular movements intact EARS: External ears normal, Hearing grossly intact. NOSE: External nose normal THROAT: Mucous membranes moist, NECK: Neck supple, CARDIOVASCULAR: Regular rate and rhythm RESPIRATORY: Respiratory rate normal, respiratory effort nonlabored, no respiratory distress GENITOURINARY: External penis is normal. Testes normal. Scrotum normal. No suspicious lesions or rashes. No meatus tenderness. No discharge present when expressing the glans penis. SKIN: warm, Dry, intact with no suspicious lesions or rash, good texture and turgor. NEURO: awake, alert, and oriented to person, place and time. There were no obvious focal neurologic abnormalities. EXTREMITIES: No joint tenderness, effusion, or edema noted. Course Course Emergency Course: Portions of this record may have been created with voice recognition software Level of Care: Express Care Visit Vital Signs Vital signs: Vital Signs Temperature 98.2 F 02/20/25 09:21 Pulse Rate 57 L 02/20/25 09:21 Respiratory Rate 20 02/20/25 09:21 Blood Pressure 146/83 H 02/20/25 09:21 Pulse Oximetry 100 02/20/25 09:21 Oxygen Delivery Room Air 02/20/25 09:21 Temperature 98.2 F 02/20/25 09:21 Pulse Rate 57 L 02/20/25 09:21 Respiratory Rate 20 02/20/25 09:21 Blood Pressure 146/83 H 02/20/25 09:21 Pulse Oximetry 100 02/20/25 09:21 Oxygen Delivery Room Air 02/20/25 09:21 Reviewed MDM - Male Genitourinary MDM Narrative Medical decision making narrative: Rica NORWOOD present in room during genital exam and genital swab. Genital exam grossly unremarkable. Mycoplasma genitalium swab obtained from patient's meatus of penis and is currently pending results. A urine Trichomonas, chlamydia, gonorrhea are also pending. Since patient is was exposed to known gonorrhea and mycoplasma genitalium. He has elected to go ahead and start treatment for the strains he was exposed to. Patient is symptomatic today. Patient given a shot of ceftriaxone today. Prescription of doxycycline and moxifloxacin sent to pharmacy. Advised patient doxycycline will also cover for any chlamydia infection. Advised patient remain abstinent until he has completed treatment and until he has been retested for mycoplasma genitalium if it is positive as there is resistance was treating this infection may require further treatment. Discussed importance of safe sex practices with patient along with condom use. Also discussed with patient he may go to the [facility] for more comprehensive STD testing if there are concerns. Discussed physical exam findings. Advised supportive measures and signs/symptoms to go to the ER. Pt is appropriate for outpt treatment and f/u. Differential Diagnosis Differential diagnosis: Likely urinary tract infection, urethritis, epididymitis and other (Gonorrhea, chlamydia, Trichomonas, mycoplasma genitalium) Lab Data Labs: Lab Results 02/20/25 Range/Units 10:05 Miscellaneous Test Pending Critical Care Time Critical Care Time Critical Care Time: No Discharge Plan Discharge Clinical Impression: Penile discharge, Exposure to sexually transmitted disease (STD) Patient Disposition: Home Condition: Stable Instructions: Antibiotic Form, Sexually Transmitted Diseases (ED), Safe Sex Practices (ED) Additional Instructions: ?Your urine sample has been sent off to test for gonorrhea, chlamydia, and trichomonas infections. My penis swab was sent off for mycoplasma genitalium. You Will be notified the results once they have resulted. Your given a shot ceftriaxone today which treats gonorrhea. Please take doxycycline twice a day for 1 week and complete the course completely, then start moxifloxacin once daily for 7 days and finish the course completely. Do not take these antibiotics at the same time. Doxycycline will cover for any chlamydia infection as well. Please wear sunscreen for going to be outside while taking doxycycline. Please remain abstinent until you know your results or have completed full treatment for an STD. Please also remain abstinent until you have been retested for mycoplasma genitalium as this could be resistant to treatment and may require retreatment. Follow-up with PCP in 3-5 days. If your symptoms worsen, you developed fever, abdominal pain, nausea, vomiting, testicular pain or swelling, body aches, chills, or any other concerns please go to the ER immediately. May also follow-up with the health department for further and more comprehensive STD testing and treatment. Patient Language: Indonesian Prescriptions: New doxycycline monohydrate 100 mg capsule 100 mg PO BID 7 Days Qty: 14 0RF Rx Instructions: Take doxycycline 1st for 1 week then on week 2 take moxifloxacin for 1 week. moxifloxacin 400 mg tablet 400 mg PO DAILY 7 Days Qty: 7 0RF Rx Instructions: Take doxycycline 1st 1 week then take moxifloxacin on week 2 for 1 week. Follow-up/Referrals: PHYSICIAN,[employer] [Primary Care Provider, Internal Medicine] Stand Alone Forms: Work/School Release IP Time of Disposition: 10:12
[2025-02-20 20:05] LABS: Trichomonas Vag PCR NOT DETECTED (NOT DETECTE)
== END 2025-02-20 10:35 | disposition home or self-care (01) ==
DX: R36.9 Urethral discharge, unspecified (principal); Z20.2 Contact with and (suspected) exposure to infections with a predominantly sexual mode of transmission
CPT/HCPCS: 87491; 87591; 87661; 96372; 99213; G0463; J0696; J2003